=== PATIENT | female | born 1990 | race Caucasian/White ===

== ENCOUNTER 2016-10-15 19:36 | Emergency (ER) | payer OTHER ==
[~2016-10-15] VITALS: Ht 160 cm; Wt 86.0 kg
[~2016-10-15 19:36] MED LIST: LEVOIUD INT UTER; ONDA4TAB10 SL; OXYC-57 PO
[2016-10-15 19:48] VITALS: BP 134/73; PULSE 85; TEMP 37.1; O2SAT 98; Ht 160 cm; Wt 86.0 kg
--- NOTE | 2016-10-15 20:13 | DIAGNOSTIC IMAGING REPORT ---
LEFT KNEE 1 OR 2 VIEWS ROUTINE CLINICAL HISTORY: Left knee pain. History of dislocation. COMPARISON: None FINDINGS: No acute fracture is identified. There is possible cortical irregularity of the medial aspect of the patella. Apparent patella renée on lateral projection is likely due to extension. Joint spaces are preserved. IMPRESSION: 1. No acute fracture or joint effusion of the left knee. 2. Apparent cortical irregularity of the medial aspect of the patella which could be seen in the setting of a previous lateral patellar dislocation. Electronically signed by: Ray Phelan M.D. 10/15/2016 8:11 PM Dictated Date/Time: 10/15/2016 8:10 PM
[2016-10-15] MEDS ORDERED: OXYCODONE/ACETAMINOPHEN 5-325 TAB PO ONE (20:15)
[2016-10-15] MEDS ORDERED: HYDR-5688 PO (20:43)
[2016-10-15] MEDS ORDERED: NORCO 5/325MG HOME PACK PO ONE (20:45)
--- NOTE | 2016-10-18 06:54 | EMERGENCY ROOM VISIT NOTE ---
ED Visit Note First contact with patient: 19:52 Chief Complaint: I dislocated my left knee. History of Present Illness: Ms. Yates is a 26-year-old white female who is brought into the ED via wheelchair complaining of an anterior left knee pain. 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 Patient reports approximately one hour ago she was getting out of her car and felt her left patella dislocate. She reports she immediately pulled knee up towards herself and believes she reduced her dislocation. Since that time she reports she has been having mild to moderate anterior knee pain. She describes it as a combination of throbbing and burning. She rates her discomfort 7/10. Her pain is nonradiating. Her pain worsens with palpation of the anterior knee and the patellar ligament, hyperextension in the last few degrees of flexion. She has not identified any alleviating factors related to the pain. She has not taken medication for pain prior to arrival at the hospital. She denies any associated symptoms including back pain, hip pain, 5 pain, lower leg pain, ankle pain, leg weakness/numbness/tingling. Review of Systems: As noted above in history of present illness. 5 body systems were reviewed and found to be negative as noted above. Past Medical History: Asthma, bronchitis, pneumonia, kidney stones. Current Medications: control. Allergies to Medications: Patient denies. Social History: Patient is not employed; she feels safe in her home environment ; she admits to tobacco and alcohol use. Physical Examination: Vital Signs: Date Time Temp Pulse Resp B/P Pulse Ox O2 Delivery O2 Flow Rate FiO2 10/15/16 19:48 37.1 85 16 134/73 98 Room Air GENERAL: 26-year-old female in mild to moderate distress due to pain, nontoxic- appearing, afebrile and hemodynamically stable. NEUROLOGICAL: Awake, alert and oriented to person, place and time. Answering questions appropriately and following commands. No focal motor or sensory deficits. SKIN: Warm, dry and pink. No soft tissue eruptions or trauma noted. LEFT LOWER EXTREMITY: No gross bony deformity. No tenderness over the hip, thigh, lower leg or ankle. Moderate tenderness without bony deformity over the anterior patella and the patellar tendon. The tendon appears attached to the tibial tuberosity. The patella does appear slightly high riding but is midline. She has pain with balance test. Pain with ballottement test. No laxity of the collateral or cruciate ligaments. Zakia's test was deferred. She has full range of motion motion of the hip, ankle and foot. Against resistance. The foot was warm and pink with brisk capillary refill and distal pulses. Light sensation was intact throughout the foot. ED Course: Patient is assessed as noted above. Left Knee X-Rays: Were read by myself and the radiologist showing no acute fractures, dislocations or joint effusions. Radiologist does note a cortical irregularity to the medial aspect of the patella which could be seen in the setting of previous lateral patellar dislocation. Patient was given ice and one Percocet tablet for pain. Patient was replaced in her knee immobilizer; she reports she had crutches at home. Patient's case was reviewed with Dr. Garcia; he independently assessed the patient we agreed on diagnostic approach, treatment, disposition and plan. Patient was educated about tonight's findings and instructed on her treatment plan; she verbalizes understanding and agreement with this plan. Clinical Impression: Anterior left knee pain. Probable patellar dislocation. Disposition: Patient discharged home in stable condition accompanied by her boyfriend; prior to departure she was reassessed and subjectively reported she was pain-free. Plan: Comfort measures were discussed with the patient including rest, ice, elevation , knee immobilizer and nonweightbearing crutches and a sliding pain medication scale of ibuprofen, acetaminophen and Lutz. Patient was encouraged to follow-up with [facility] for definitive care and treatment. Patient was encouraged return ED for worsening/uncontrolled pain, uncontrolled swelling or any new/concerning symptoms.
== END 2016-10-15 21:20 | disposition home or self-care (01) ==
LOC: C.EDB 19:37 → C.EDD 21:20
DX: M25.562 Pain in left knee (principal); J45.909 Unspecified asthma, uncomplicated; Z79.3 Long term (current) use of hormonal contraceptives; F17.210 Nicotine dependence, cigarettes, uncomplicated